=== PATIENT | male | born 1965 | race African-American/Black ===

== ENCOUNTER 2019-07-02 16:27 | Emergency (ER) | payer SELFPAY ==
[~2019-07-02] VITALS: Ht 182.9 cm; Wt 104.0 kg
[2019-07-02] MEDS ORDERED: TETANUS AND DIPHTHERIA TOX/PF 0.5ML SYR (ADULT) IM ONE (18:15)
[2019-07-02] MEDS ORDERED: TETANUS, DIPHTHERIA, PERTUSSIS VAC/PF 0.5ML (>7YR OLD) IM ONE (18:30)
[2019-07-02 18:35] VITALS: BP 132/75
== END 2019-07-02 19:32 | disposition home or self-care (01) ==
LOC: ER 16:27
DX: S82.841A Displaced bimalleolar fracture of right lower leg, initial encounter for closed fracture (principal); Y08.89XA Assault by other specified means, initial encounter; Y93.89 Activity, other specified; Y92.89 Other specified places as the place of occurrence of the external cause; Y99.8 Other external cause status
CPT/HCPCS: 29515; 73590; 73610; 90471; 90714; 90715; 99283